=== PATIENT | female | born 1995 | race Caucasian/White ===

== ENCOUNTER → 2018-11-06 | Outpatient (CLI) | payer BC | LOC: LAB SHORT 20:26 → LAB 20:26 | DX: R30.0 Dysuria (principal) | CPT/HCPCS: 87077; 87086; 87147; 87186 ==

== ENCOUNTER 2021-07-21 06:21 | Observation (INO) | payer BC ==
[~2021-07-21] VITALS: Ht 165.1 cm; Wt 88.5 kg
[2021-07-21] MEDS ORDERED: DESVENLAFAXINE25 MG PO (06:35)
[2021-07-21] MEDS ORDERED: DROSPIRENONE-E1 EAC4 PO (06:35)
[2021-07-21 06:55] LABS: BASOPHILS ABSOLUTE AUTO 0.03 K/mm3 (0.00-0.23); BASOPHILS PERCENT AUTO 0 % (0-2); EOSINOPHILS ABSOLUTE AUTO 0.04 K/mm3 (0.00-0.68); EOSINOPHILS PERCENT AUTO 1 % (0-6); Hematocrit 39.6 % (33.0-51.0); Hemoglobin 13.7 g/dL (11.5-16.0); IMMATURE GRAN ABSOLUTE AUTO 0.02 K/mm3 (0.00-0.10); IMMATURE GRAN PERCENT AUTO 0 % (0-1); LYMPHOCYTES ABSOLUTE AUTO 1.83 K/mm3 (0.84-5.20); LYMPHOCYTES PERCENT AUTO 26 % (21-46); MONOCYTES ABSOLUTE AUTO 0.55 K/mm3 (0.16-1.47); MONOCYTES PERCENT AUTO 8 % (4-13); Mean Corpuscular HGB 30.8 pg (26.0-34.0); Mean Corpuscular HGB Conc 34.6 g/dL (31.5-36.5); Mean Corpuscular Volume 89 fL (80-100); Mean Platelet Volume 12.2 fL (9.1-12.4); NEUTROPHILS PERCENT AUTO 66 % (41-73); Platelet Count 295 K/mm3 (150-400); RDW Coefficient Variation 12.1 % (11.7-14.2); RDW Standard Deviation 39.5 fL (35.1-46.3); Red Blood Cell Count 4.45 M/mm3 (3.80-5.20); White Blood Cell Count 7.17 K/mm3 (4.00-11.30)
[2021-07-21 07:24] LABS: Alanine Aminotransfer (ALT/SGP 739 U/L (12-78); Albumin, Blood 3.9 g/dL (3.4-5.0); Alk Phos 86 U/L (50-136); Anion Gap 6 mmol/L (6-16); Aspartate Aminotrans (AST/SGOT 720 U/L (12-37); Bilirubin, Total 0.6 mg/dL (0.1-1.0); Blood Urea Nitrogen 9 mg/dL (8-24); Bun/Creatinine Ratio 15.7 (12.0-20.0); CO2, Blood 23 mmol/L (21-32); Calcium, Blood 9.5 mg/dL (8.5-10.1); Chloride, Blood 111 mmol/L (98-108); Creatinine, Blood 0.57 mg/dL (0.40-1.00); Globulin, Blood 3.9 g/dL (2.2-4.0); Glomerular Filtration Rate >60 (60-); Glucose, Blood 115 mg/dL (70-99); Sodium, Blood 140 mmol/L (136-145); Total Protein, Blood 7.8 g/dL (6.4-8.2)
[2021-07-21 07:47] LABS: Source, Urine Clean Catch
[2021-07-21 07:54] LABS: Appearance, Urine Clear (Clear); Bilirubin, Urine Neg (Neg); Blood, Urine Neg (Neg); Color, Urine Yellow (P-Yellow); Glucose Qualitative, Urine Neg (Neg); Ketones, Urine Neg (Neg); Leukocyte Esterase, Urine Neg (Neg); Nitrite, Urine Neg (Neg); Protein, Urine Neg (Neg); Urobilinogen, Urine 2+ (Normal)
[2021-07-21 09:03] LABS: Influenza A, PCR NEGATIVE (NEGATIVE); Influenza B, PCR NEGATIVE (NEGATIVE); Resp Syncytial Virus, PCR NEGATIVE (NEGATIVE)
[2021-07-21 09:32] LABS: SARS-Cov-2 (COVID-19) PCR, MMC POSITIVE (NEGATIVE)
--- NOTE | 2021-07-21 12:34 | NUR ---
JEWELRY PT HAS A SMALL ANCHOR ON HER CHEST WHICH SHE REPORTS UNABLE TO REMOVE, THERE IS ALSO A NOSE RING THAT CANNOT BE REMOVED AT THIS TIME.
[2021-07-22 04:39] LABS: BASOPHILS ABSOLUTE AUTO 0.04 K/mm3 (0.00-0.23); BASOPHILS PERCENT AUTO 1 % (0-2); EOSINOPHILS ABSOLUTE AUTO 0.11 K/mm3 (0.00-0.68); EOSINOPHILS PERCENT AUTO 2 % (0-6); Hematocrit 39.3 % (33.0-51.0); Hemoglobin 12.9 g/dL (11.5-16.0); IMMATURE GRAN ABSOLUTE AUTO 0.01 K/mm3 (0.00-0.10); IMMATURE GRAN PERCENT AUTO 0 % (0-1); LYMPHOCYTES ABSOLUTE AUTO 3.23 K/mm3 (0.84-5.20); LYMPHOCYTES PERCENT AUTO 51 % (21-46); MONOCYTES ABSOLUTE AUTO 0.61 K/mm3 (0.16-1.47); MONOCYTES PERCENT AUTO 10 % (4-13); Mean Corpuscular HGB 30.3 pg (26.0-34.0); Mean Corpuscular HGB Conc 32.8 g/dL (31.5-36.5); Mean Corpuscular Volume 92 fL (80-100); Mean Platelet Volume 12.2 fL (9.1-12.4); NEUTROPHILS ABSOLUTE AUTO 2.38 K/mm3 (1.96-9.15); NEUTROPHILS PERCENT AUTO 37 % (41-73); Platelet Count 264 K/mm3 (150-400); RDW Coefficient Variation 12.4 % (11.7-14.2); RDW Standard Deviation 41.7 fL (35.1-46.3); Red Blood Cell Count 4.26 M/mm3 (3.80-5.20); White Blood Cell Count 6.38 K/mm3 (4.00-11.30)
--- NOTE | 2021-07-22 04:47 | NUR ---
STATED WILL TO WEAR AFTER SURG TODAY. STATED UP TO OFTEN TO THE BATHROOM TO VOID.
[2021-07-22 05:07] LABS: Alanine Aminotransfer (ALT/SGP 611 U/L (12-78); Albumin, Blood 3.8 g/dL (3.4-5.0); Albumin/Globulin Ratio 1.2 (0.8-1.8); Alk Phos 71 U/L (50-136); Anion Gap 5 mmol/L (6-16); Aspartate Aminotrans (AST/SGOT 269 U/L (12-37); Bilirubin, Total 0.4 mg/dL (0.1-1.0); Blood Urea Nitrogen 6 mg/dL (8-24); Bun/Creatinine Ratio 8.2 (12.0-20.0); CO2, Blood 27 mmol/L (21-32); Calcium, Blood 9.6 mg/dL (8.5-10.1); Chloride, Blood 109 mmol/L (98-108); Creatinine, Blood 0.73 mg/dL (0.40-1.00); Globulin, Blood 3.3 g/dL (2.2-4.0); Glomerular Filtration Rate >60 (60-); Glucose, Blood 87 mg/dL (70-99); Potassium, Blood 4.4 mmol/L (3.5-5.5); Sodium, Blood 141 mmol/L (136-145); Total Protein, Blood 7.1 g/dL (6.4-8.2)
--- NOTE | 2021-07-22 06:16 | NUR ---
SHIFT SUMMARY PT C/O ABD PAIN (SUBSTERNAL PAIN THAT RADIATED TO HER BACK) AND RECEIVED PRN DILAUDID, AND PRN PHENAGREN FOR NAUSEA. PT HAS BEEN NPO AND WITHOUT NARCOTICS SINCE MIDNIGHT TO PREPARE FOR HYDASCAN AND POSSIBLE LAB BAMBI. PT HAS TWO BODY PIERCINGS SHE IS UNABLE TO REMOVE - NASAL PIERCING AND "ANCHOR" IN HER CHEST. PT SHOWERED NOC SHIFT. LACTATED RINGERS INFUSING AT 75 ML/HR INTO LEFT HAND IV. ROOM AIR. INDEPENDENT IN ROOM. VOIDING WITHOUT DIFFICULTY. ISO FOR COVID POSITIVE TEST. ASYMPTOMATIC - DENIES COUGH, FEVER/CHILLS, SORE THROAT, DIFFICULTY BREATHING. WILL CONTINUE TO MONITOR UNTIL GIVING REPORT TO DAY RN.
[2021-07-22 09:09] LABS: HBSAG SCREEN Negative (Negative); HEP A AB, IGM Negative (Negative); HEP B CORE AB, IGM Negative (Negative); HEP C VIRUS AB <0.1 (0.0-0.9)
[2021-07-22] MEDS ORDERED: HYDROCODONE-AC1 EA10 PO (12:45)
--- NOTE | 2021-07-22 13:01 | NUR ---
PT ARRIVED BACK TO UNIT AT APROX 1245 FROM PACU. LAP SITES X'S 4 INTACT WITH NO DRAINAGE PRESENT. PT C/O 09/13 ABD PAIN BUT REPORTS ITS TOLERABLE. PT GIVEN CLEAR LIQUIDS AND CRACKERS, WILL ADVANCE TOLERATED.
--- NOTE | 2021-07-22 16:39 | NUR ---
DISHCARGE SUMMARY DISCHARGE INFORMATION DISCUSSED c PT INCLUDE HOSPITAL CONTACT AND SURGEON CONTACT INFORMATION, WHAT TO LOOK OUT FOR, FOLLOW UP INFORMATION, ACTIVITY RESTRICTIONS, PAIN MANAGEMENT, AND INCISION CARE. PT REPORTS PAIN OF 3 OUT OF 10 AT TIME OF DISCHARGE USING ONLY ORAL PAIN MEDIATIONS, DENIES N/V, ABLE TO VOID/AMBULATE/TOLERATE PO INTAKE. ALL QUESTIONS ANSWERED. PRESCRIPTION GIVEN TO PT WHO GAVE IT TO HER TO HAVE FILLED EARLIER TODAY, IV ACCESS REMOVED AND NO OTHER DEVICES IN PLACE. PT ESCORTED OUT VIA WC BY ALBERT c ALL PERSONAL POSSESSIONS. NOTHING FOLLOWS.
== END 2021-07-22 16:34 | disposition home or self-care (01) ==
LOC: ER 06:21 → SURS 06:22
PROVIDERS: Emergency Medicine; ADMIT Surgery
DX: R10.11 Right upper quadrant pain (principal); K80.20 Calculus of gallbladder without cholecystitis without obstruction; R74.01 Elevation of levels of liver transaminase levels; U07.1 COVID-19; K83.8 Other specified diseases of biliary tract; Z91.040 Latex allergy status; Z91.018 Allergy to other foods
CPT/HCPCS: 0241U; 36415; 74177; 74300; 76705; 78226; 80053; 80074; 81003; 81025; 83690; 85025; 88304; 96374; 96375; 96376; 99285-25; A9270; A9537; C1729; G0378; J0690; J1100; J1170; J1885; J2250; J2405; J2550; J2704; J3010; J7030; J7120; Q9967

== ENCOUNTER 2022-01-29 10:52 | Day surgery (SDC) | payer BC ==
[~2022-01-29] VITALS: Ht 165.1 cm; Wt 76.7 kg
[~2022-01-29 10:52] MED LIST: DESVENLAFAXINE25 MG PO; DROSPIRENONE-E1 EAC4 PO; HYDROCODONE-AC1 EA10 PO
[2022-01-29] MEDS ORDERED: BUSP10 PO (11:29)
[2022-01-29] MEDS ORDERED: ZYRTEC10 M2 PO (11:30)
[2022-01-29] MEDS ORDERED: Adderall Xr 1515 MG PO (11:30)
[2022-01-29] MEDS ORDERED: LOPE2C PO (11:31)
[2022-01-29] MEDS ORDERED: PROG100 PO (11:31)
[2022-01-29] MEDS ORDERED: Bentyl10 MG PO (11:31)
[2022-01-29] MEDS ORDERED: OMEP20ER PO (11:32)
[2022-01-29] MEDS ORDERED: ONDA4 PO (11:32)
[2022-01-29] MEDS ORDERED: CLON.5 (11:32)
[2022-01-29] MEDS ORDERED: IMITREX50 M1 PO (11:32)
--- NOTE | 2022-01-29 11:41 | NUR ---
01/29/22 Linda1 Pola Dyer CALL LIGHT WITHIN REACH. FAMILY AT BEDSIDE.
--- NOTE | 2022-01-29 12:16 | NUR ---
01/29/22 1216 Shimon Sharp ABOMINAL AREA PREPPED BY NEETA JEAN WITH DURAPREP. RICH AREA & THIGHS PREPPED BY SHIMON RANGEL WITH BETADINE SOLUTION. BUPIVACAINE 0.5% 10 MLS MIXED W/ 0.05 ML OF EPI PER ORDER TO MAKE 10 MLS OF BUPIVACAINE 0.5% 1:200,000 FOR INJECTION AT OPSITE BY DR DAWKINS.
== END 2022-01-29 14:10 | disposition home or self-care (01) ==
LOC: ORSCSDS 10:52
PROVIDERS: Obstetrics & Gynecology
PROC: 0U5F4ZZ Destruction of Cul-de-sac, Percutaneous Endoscopic Approach (ICD-10-PCS; principal; 2022-01-29 12:00)
DX: R10.2 Pelvic and perineal pain (principal); N80.0 Endometriosis of uterus; U07.1 COVID-19; K21.9 Gastro-esophageal reflux disease without esophagitis; Z79.899 Other long term (current) drug therapy
CPT/HCPCS: J0171; J1100; J1885; J2250; J2405; J2704; J2710; J3010; J7120

== ENCOUNTER 2022-04-12 12:52 | Day surgery (SDC) | payer BC ==
[~2022-04-12] VITALS: Ht 165.1 cm; Wt 66.7 kg
[~2022-04-12 12:52] MED LIST changes: +Adderall Xr 1515 MG PO; +BUSP10 PO; +Bentyl10 MG PO; +CLON.5; +IMITREX50 M1 PO; +LOPE2C PO; +OMEP20ER PO; +ONDA4 PO; +PROG100 PO; +ZYRTEC10 M2 PO
--- NOTE | 2022-04-12 14:24 | NUR ---
Ambulatory in Day Surgery. History, Chart, Medications and Allergies reviewed before start of procedure.Lungs clear T/O to Auscultation. Patient confirms NPO status and agrees with scheduled surgery. Pre-Op teaching done. Pt verbalizes understanding.
--- NOTE | 2022-04-12 14:48 | NUR ---
REPORT GIVEN TO Marin WHO IS ASSUMING CARE OF PT AT THIS TIME.
[2022-04-12 20:34] LABS: BASOPHILS ABSOLUTE AUTO 0.02 K/mm3 (0.00-0.23); BASOPHILS PERCENT AUTO 0 % (0-2); EOSINOPHILS PERCENT AUTO 0 % (0-6); Hematocrit 36.9 % (33.0-51.0); Hemoglobin 12.6 g/dL (11.5-16.0); IMMATURE GRAN ABSOLUTE AUTO 0.06 K/mm3 (0.00-0.10); IMMATURE GRAN PERCENT AUTO 1 % (0-1); LYMPHOCYTES ABSOLUTE AUTO 0.63 K/mm3 (0.84-5.20); LYMPHOCYTES PERCENT AUTO 5 % (21-46); MONOCYTES ABSOLUTE AUTO 0.23 K/mm3 (0.16-1.47); MONOCYTES PERCENT AUTO 2 % (4-13); Mean Corpuscular HGB Conc 34.1 g/dL (31.5-36.5); Mean Corpuscular Volume 91 fL (80-100); Mean Platelet Volume 11.8 fL (9.1-12.4); NEUTROPHILS ABSOLUTE AUTO 11.86 K/mm3 (1.96-9.15); NEUTROPHILS PERCENT AUTO 93 % (41-73); Platelet Count 255 K/mm3 (150-400); RDW Coefficient Variation 12.6 % (11.7-14.2); RDW Standard Deviation 41.5 fL (35.1-46.3); Red Blood Cell Count 4.07 M/mm3 (3.80-5.20)
--- NOTE | 2022-04-12 22:58 | NUR ---
UPDATE PT CONT TO REPORT SEVERE PAIN WITHOUT RELIEF WITH MEDICATIONS GIVEN PER EMAR. PT STATES SHE ALSO DID NOT HAVE HOME MEDICATIONS ORDERED FOR TONIGHT. PHYSICIAN NOTIFIED. ORDERS FOR 1-2MG OF DILAUDID Q 4 PRN AND INSTRUCTED TO ORDER HOME MEDS. PT MEDICATED WITH 1 MG OF DILAUDID AND SLEEPING AT THIS TIME.
--- NOTE | 2022-04-13 05:40 | NUR ---
SHIFT SUMMARY PT ALERT AND ORIENTED X 4. REPORTS SEVERE PAIN T/O SHIFT. MEDICATED PER EMAR. NO CP OR PRESSURE. HR STABLE. BP STABLE. OXYGEN SATURATION MAINTAINED ABOVE 95% ON RA. PT IND IN ROOM. MINIMAL VAGINAL BLEEDING. SURGICAL SITE BELOW UMBILICUS HAS SLIGHT OOZING OF SEROSANGIOUS BLOOD. CALL LIGHT WITHIN REACH. WILL CONT TO MONITOR UNTIL REPORT GIVEN TO RANDALL RANGEL.
--- NOTE | 2022-04-13 14:15 | NUR ---
PROVIDED PT AND SPOUSE WITH DISCHARGE TEACHING AND PRINTED MATERIAL; BOTH RELAY UNDERSTANDING OF INSTRUCTIONS. PROVIDED WITH WRITTEN PRESCRIPTION. PT'S TRANSFERRED BELONGINGS TO VEHICLE. PT REFUSED OFFER OF WHEELCHAIR TRANSFER TO CAR, AMBULATED HERSELF. REMOVED PERIPHERAL IV WNL.
== END 2022-04-13 14:20 | disposition home or self-care (01) ==
LOC: ORSCMMR 12:52 → ORD 14:30 → SURS 17:32 → ORSCMMR 04-13 14:20
PROVIDERS: Obstetrics & Gynecology
PROC: 0UT7FZZ Resection of Bilateral Fallopian Tubes, Via Natural or Artificial Opening With Percutaneous Endoscopic Assistance (ICD-10-PCS; principal; 2022-04-12 14:30)
PROC: 0UT9FZZ Resection of Uterus, Via Natural or Artificial Opening With Percutaneous Endoscopic Assistance (ICD-10-PCS; principal; 2022-04-12 14:30)
DX: N92.1 Excessive and frequent menstruation with irregular cycle (principal); R10.2 Pelvic and perineal pain; K21.9 Gastro-esophageal reflux disease without esophagitis; Z79.899 Other long term (current) drug therapy; F41.8 Other specified anxiety disorders
CPT/HCPCS: 36415; 85025; 88307; A9270; J0171; J0690; J1100; J1170; J1885; J2250; J2270; J2405; J2704; J2795; J3010; J7120

== ENCOUNTER 2022-10-16 06:43 | Day surgery (SDC) | payer BC ==
[2022-10-16] VITALS (18 sets, daily range): BP systolic 97–129; BP diastolic 55–87
[~2022-10-16] VITALS: Wt 68.9 kg
[2022-10-16] MEDS ORDERED: LAMO100 PO (08:06)
[2022-10-16] MEDS ORDERED: QUET25 PO (08:06)
[2022-10-16] MEDS ORDERED: TEMA7.5 PO (08:07)
[2022-10-16] MEDS ORDERED: VILAZODONE HCL40 MG PO (08:07)
[2022-10-16] MEDS ORDERED: MONT10T PO (08:07)
--- NOTE | 2022-10-16 08:26 | NUR ---
PRE-OP NOTE PT A&OX4, NO ACUTE CONCERNS. Ambulatory in Day Surgery Hemostasis achieved per protocol at Refer to Hemo report for Access Site Details. Reported to: JUAN CARLOS
--- NOTE | 2022-10-16 08:42 | NUR ---
PRE-OP NOTE PT A&OX4, VSS, NO ACUTE CONCERNS. Ambulatory in Day Surgery Patient confirms NPO status and agrees with scheduled surgery. Pre-Op teaching done. Pt verbalizes understanding. Patient States Post-Procedure ride home has been arranged. PT BELONGINGS STOWED BELOW STRETCHER C PURSE, GLASSES TO PACU C LABEL.
--- NOTE | 2022-10-16 09:15 | NUR ---
10/16/22 0915 Mia Marte 14 FR. LATEX FREE PEREZ INSERTED PRIOR TO PREP BALLOON INFLATED 10CC REMOVED PRIOR TO TRANSPORT TO PACU
--- NOTE | 2022-10-16 11:30 | NUR ---
ARRIVAL PATIENT ARRIVED TO ROOM 226 VIA GURNEY. TRANSFERRED TO BED SBA W/O DIFFICULTY. X3 LAP SITES TO ABDOMEN W/ BANDAIDS IN PLACE, SMALL AMOUNT OF DRAINAGE NOTED ON ARRIVAL. PATIENT REPORTS 7/10 ABDOMINAL PAIN, STATES 5-6 IS TOLERABLE. PATIENT HAD PAIN MEDICATIONS ON DEPARTURE FROM PACU, PLAN TO CONTINUE TO MEDICATE PER EMAR. LUNGS CLEAR, VSS ON RA. PATIENT DENIES N/T, DENIES SOB/DIFFICULTY BREATHING, DENIES CP/PRESSURE. A&O X4. ORIENTED TO ROOM & CALL LIGHT, IN REACH.
--- NOTE | 2022-10-16 11:42 | NUR ---
PT AND REQUESTING THAT PATIENT BE ADMITTED TO HOSPITAL FOR PAIN CONTORL. SPOKE WITH DR. DAWKINS REGARDING PATIENTS REQUEST, PER DR DAWKINS ADMIT PATIENT FOR EXTENDED RECOVERY. ORDERS PLACED. PT REPORTING PAIN OF 10/10 IN HER ABD. SEE EMAR FOR PAIN MEDICATIONS GIVEN. VITALS REMAIN STABLE THROUGHOUT STEP DOWN RECOVERY. REMAINED AT BEDSIDE. PT TOLERATING JELLO AND ORANGE JUICE. SHE REPORTED NAUSEA DUE TO HER PAIN. SHE HAS ALSO BEEN TEARFUL REPORTNIG "NOT WANTING TO GET HOME AND BE IN PAIN". ALL OF THIS REPORTED TO DR DAWKINS. PRESCRIPTION GIVEN TO IN DAY SURGERY. REPORT GIVEN TO SHYANNE RANGEL ON SURGICAL FLOOR. PT REQUESTING TO USE RESTROOM. WAS ABLE TO TRANSFER FROM [facility] TO W/C AND FROM W/C TO TOILET. PT WAS AMBULATORY ON HER WAY BACK FROM BATHROOM WITH STEADY GAIT.
--- NOTE | 2022-10-16 11:46 | NUR ---
ALL INCISIONS ARE CD&I WITH BANDAIDS. NO VAGINAL BLEEDING.
--- NOTE | 2022-10-16 12:58 | NUR ---
UMBILICUS SITE HAD SCANT BLOODY DRNG. GAUZE & TEGADERM PLACED.
--- NOTE | 2022-10-16 18:11 | NUR ---
SHIFT SUMMARY VSS ON RA. PAIN MANAGED PER EMAR. BELLY BUTTON INCISION HAD SLIGHT DRAINAGE, GAUZE & TEGADERM PLACED OVER ORIGINAL BANDAGE, REMAINS C/D/I CURRENTLY. PATIENT EATING, DRINKING, & VOIDING WELL. AMBULATED T/O HALLS WELL. CALLS APPROPRIATELY, IN REACH. WILL REPORT TO ONCOMING RN AT 1900.
[2022-10-17 03:17] VITALS: BP 94/53
--- NOTE | 2022-10-17 04:26 | NUR ---
SUMMARY PATIENT IS AOX4, IND T/O HALLS AND ROOM. AMBULATES FREQUENTLY, VOIDING, TOLERATING PO INTAKE. MEDICATED FOR PAIN. X3 LAP SITES TO ABD, UMBILICUS SITE WITH SLIGHT SEROSANGUINEOUS DRAINAGE, LIGHT SHADOWING ON BANDAIDS AT OTHER 2 LAP SITES. DENIES N/V, DENIES PASSING FLATUS, AND BM. IV SALINE LOCKED. CALL LIGHT IS IN REACH, PLAN FOR DISCHARGE THIS AM.
[2022-10-17 06:12] LABS: BASOPHILS ABSOLUTE AUTO 0.05 K/mm3 (0.00-0.23); BASOPHILS PERCENT AUTO 1 % (0-2); EOSINOPHILS ABSOLUTE AUTO 0.03 K/mm3 (0.00-0.68); EOSINOPHILS PERCENT AUTO 0 % (0-6); Hematocrit 34.8 % (33.0-51.0); Hemoglobin 11.7 g/dL (11.5-16.0); IMMATURE GRAN ABSOLUTE AUTO 0.03 K/mm3 (0.00-0.10); IMMATURE GRAN PERCENT AUTO 0 % (0-1); LYMPHOCYTES ABSOLUTE AUTO 3.18 K/mm3 (0.84-5.20); LYMPHOCYTES PERCENT AUTO 31 % (21-46); MONOCYTES ABSOLUTE AUTO 0.86 K/mm3 (0.16-1.47); MONOCYTES PERCENT AUTO 8 % (4-13); Mean Corpuscular HGB 30.4 pg (26.0-34.0); Mean Corpuscular HGB Conc 33.6 g/dL (31.5-36.5); Mean Corpuscular Volume 90 fL (80-100); Mean Platelet Volume 11.7 fL (9.1-12.4); NEUTROPHILS ABSOLUTE AUTO 6.25 K/mm3 (1.96-9.15); NEUTROPHILS PERCENT AUTO 60 % (41-73); Platelet Count 262 K/mm3 (150-400); RDW Coefficient Variation 12.7 % (11.7-14.2); RDW Standard Deviation 41.4 fL (35.1-46.3); Red Blood Cell Count 3.85 M/mm3 (3.80-5.20)
[2022-10-17 08:03] VITALS: BP 100/59
--- NOTE | 2022-10-18 07:35 | NUR ---
on 10/17/22 pt was administered 25mcg Fentanyl at 1054 prior to dc. pt was wheeled out by this RN and med was locked in pt med drawer to waste upon return to unit. This RN did not remember that medication was in drawer until 10/18/22 at aprox 0730. Pharmacy notified, unable to access pt in Pyxis. Recomended that RN waste with another RN and both put notes in pt chart. 75mcg Fentynal wasted at 0739 w/Sofi SANDERSN RN.
== END 2022-10-17 11:00 | disposition home or self-care (01) ==
LOC: ORSCMMR 06:43 → ORD 08:00 → ORSCMMR 08:00 → SURS 11:23 → ORSCMMR 10-17 11:00
PROVIDERS: Obstetrics & Gynecology
PROC: 0UT24ZZ Resection of Bilateral Ovaries, Percutaneous Endoscopic Approach (ICD-10-PCS; principal; 2022-10-16 08:00)
PROC: 0U5F4ZZ Destruction of Cul-de-sac, Percutaneous Endoscopic Approach (ICD-10-PCS; principal; 2022-10-16 08:00)
DX: R10.2 Pelvic and perineal pain (principal); N80.9 Endometriosis, unspecified; N83.292 Other ovarian cyst, left side; N83.291 Other ovarian cyst, right side; K21.9 Gastro-esophageal reflux disease without esophagitis; F41.8 Other specified anxiety disorders; F31.9 Bipolar disorder, unspecified; F90.9 Attention-deficit hyperactivity disorder, unspecified type; Z79.899 Other long term (current) drug therapy
CPT/HCPCS: 36415; 85025; 88305; A9270; J0690; J1100; J1885; J2250; J2270; J2405; J2704; J3010; J7120